=== PATIENT | female | born 1940 | race Caucasian/White ===

== ENCOUNTER 2016-08-19 11:07 | Emergency (ER) | payer MEDICARE, OTHER ==
[~2016-08-19] VITALS: Ht 170.2 cm; Wt 98.0 kg
[~2016-08-19 11:07] MED LIST: VICODIN 5/500 T1 TAB PO
--- NOTE | 2016-08-19 11:26 | Emergency Room Report ---
History of Present Illness Time Seen by [id number] Presenting Problem in Triage Pt arrived:Walked Presenting Problem:Vomiting, prductive cough of green sputum that has turned to white- smells bad and tastes bad. 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 N Clinical Suspician of Infection? N Mental Status: 1 - Regular (Normal Baseline) Sepsis Risk:Low Sepsis Risk Have you (or family members/close friends) recently traveled outside the [place]? N If Yes, where/when: Have you had exposure to infectious disease within the past month? TB? Other? Specify: Comment The patient complains of being ill for 11 days. She has a sore throat and a productive cough. She says today she also developed vomiting. Her blood pressure was also high today. She says that she was in the [facility] in [facility] when all of this started. She says there was a lot of pollen. She says that she goes there every year at this time and gets these symptoms from [facility] and sees her family physician and gets a shot (? steroid) which helps. She was going to try and wait until tomorrow to see her primary care physician but because of the vomiting and high blood pressure she felt she couldn't wait. No fever. She had a RIGHT earache, which is now gone. She has a history of hypertension, but says she was taken off her medications 3 years ago because it made her blood pressure go too low in the evenings. She says she takes an herbal compound which regulates it well, unless she takes cold medications. She has been taking Sudafed cold and sinus and her blood pressure is now elevated. ALLERGIES Coded Allergies: penicillin G (Severe, 08/19/16) Home Medications Reported Medications No Known Home Medications History Medical History General Angina: Yes [place]: Yes Hypertension? No Hyperlipidemia? Yes CHF? No COPD? No Asthma? No Hernia? No CVA? No Seizures? No Diabetes? No UTI? No Stones? No GB Disease: No Hepatitis? No Cataracts? No Glaucoma? No MRSA? No TB? No Cancer? No Immunization Hx DT/Tetanus 5-10 YRS Surgical Hx Previous Surgery?Y Hysterect Family History Family Hx Diabetes No CAD Yes Hypertension No Hyperlipidemia No Cancer No TB No Social History Smoking Hx Smoker: Never Smoker Tobacco: No Packs/day N/A Alcohol Alcohol: No Review of Systems All Other Systems Reviewed and Negative Constitutional denies fever Respiratory cough, shortness of breath Gastrointestinal vomiting Physical Exam Vital Signs Vital Signs Date Time Temp Pulse Resp B/P Pulse O2 O2 Flow FiO2 Ox Delivery Rate 08/19 1246 92 18 156/98 96 08/19 1200 96 18 151/90 95 08/19 1110 99.4 98 18 191/110 95 General Appearance normal appearance, WD/WN Eye Exam - bilateral eye normal exam, bilateral eye PERRL, bilateral eye EOMI Ear, Nose, Throat hearing grossly normal, normal ENT inspection, mild erythema of pharynx without edema or exudates. Uvula midline. Voice is clear., tympanic membranes normal Neck normal inspection, non-tender, supple, full range of motion Respiratory Status Yes: trachea midline, chest symmetrical, non tender chest. No: respiratory distress. Lung Sounds bilateral: normal breath sounds, lungs clear. 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 No Results/Orders Laboratory Tests 08/19/16 1120: TSH 2.27, Thyroxine (T4) 9.0 08/19/16 1120: Lactic Acid 1.2 08/19/16 1120: Sodium 136, Potassium 3.6, Chloride 101, Carbon Dioxide 31, BUN 8, Creatinine 0.9, Estimated Creat Clear 85, Estimated GFR (MDRD) 61, Glucose 109 H, Calcium 9.1, Total Bilirubin 0.4, AST 14 L, ALT 23, Alkaline Phosphatase 103, Creatine Kinase 65, CK-MB (CK-2) Rel Index 0.8, CK and CKMB Interp < 0.5, Troponin I < 0.02, Total Protein 7.9, Albumin 3.8, Globulin 4.1 H, Albumin/Globulin Ratio 0.9 L, WBC 7.0, RBC 4.83, Hgb 14.7, Hct 44.8, MCV 92.8, RDW 12.4, Plt Count 219 , MPV 6.1 L, Gran % 49.3, Gran # 3.5, Lymphocytes % 41.9, Monocytes % 5.8, Eosinophils % 2.5, Basophils % 0.4, Lymphocytes # 3.0, Monocytes # 0.4, Eosinophils # 0.2, Basophils # 0.0, PUBS MCHC 32.8, MCH 30.5 Current Medication Orders Sig/Venkat Start time Last Medication Dose Route Stop Time Status Admin Ondansetron HCl 4 MG ONCE ONE 08/19 1230 DC 08/19 IV 08/19 1231 1231 Ondansetron HCl 0 .STK-MED ONE 08/19 1228 DC .ROUTE Sodium Chloride 10 ML PRN PRN 08/19 1130 AC IV 08/20 1120 Orders Procedure Date/time Status LOW HEEL BUILDER 08/19 1200 Active LOW HEEL BUILDER 08/19 1154 Active THYROID STIMULATING HORMONE 08/19 1154 Complete THYROXINE (T4) 08/19 1154 Complete 12 LEAD EKG-BESSON (INITIAL) 08/19 1120 Active ELECTROCARDIOGRAM REQUEST 08/19 1120 Active CHEST(2 VIEWS-NOT PORTABLE) 08/19 1120 Active IV SALINE LOCK 08/19 1120 Active CULTURE, BLOOD 08/19 1120 Active LACTIC ACID 08/19 1120 Complete CBC WITH AUTO DIFF 08/19 1120 Complete CARDIAC ENZYMES 08/19 1120 Complete CHEM 12 PROFILE 08/19 1120 Complete CM/EKG CM/EKG Comments EKG interpreted by Remi Snyder MD: Rhythm: Atrial fibrillation Rate: 90 [place]: normal Ectopy: none Conduction: normal ST Segment Changes: none T Wave Changes: none Q Waves: none No evidence of acute ischemia or injury Poor R-wave progression No prior electrocardiograms available for comparison XRAY/CT/US XRAY/CT/US XRAY chest Comment X-ray interpreted by Remi Snyder M.D.: Nodule RIGHT base. No prior x-rays available for comparison. Progress - 12:45 PM: Case discussed with Dr. Bates. He requests the patient be started on Zaroxolyn. No steroids at this time due to her blood pressure. Z-Akhil. Discontinue Sudafed. No blood pressure medication until rechecked in the office while off of Sudafed. Departure Departure Disposition DC Home or Self Care(routine) Clinical Impression Primary Impression: Acute bronchitis Qualifiers: Bronchitis organism: unspecified organism Qualified Code: J20.9 - Acute bronchitis, unspecified Secondary Impressions: Hypertension Qualifiers: Hypertension type: essential hypertension Qualified Code: I10 - Essential (primary) hypertension New onset atrial fibrillation Pharyngitis Qualifiers: Pharyngitis/tonsillitis etiology: unspecified etiology Qualified Code: J02.9 - Acute pharyngitis, unspecified Pulmonary nodule Condition STABLE Patient Instructions DI for Acute Bronchitis, DI for Atrial Fibrillation, DI for Pharyngitis/Tonsillopharyngitis -- Child, DI for Pulmonary Nodule Additional Instructions Call Dr. Bates's office tomorrow to make appointment to be seen as soon as possible. Stop taking Sudafed. Only take [id number] cold medications that are approved for with high blood pressure. Prescriptions Current Visit Scripts Rivaroxaban (Xarelto) 20 MG PO DAILY #30 TAB Azithromycin (Zithromycin (Z-AKHIL) 250MG Tab) 250 MG PO DAILY #6 TAB TAKE TWO (2) TABLETS ON DAY 1, THEN ONE (1) TABLET DAY #2 THRU #5 ED Critical Care Critical Care No at [id number]
--- NOTE | 2016-08-19 11:26 | Emergency Room Report ---
History of Present Illness Time Seen by [id number] Presenting Problem in Triage Pt arrived:Walked Presenting Problem:Vomiting, prductive cough of green sputum that has turned to white- smells bad and tastes bad. 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 N Clinical Suspician of Infection? N Mental Status: 1 - Regular (Normal Baseline) Sepsis Risk:Low Sepsis Risk Have you (or family members/close friends) recently traveled outside the [place]? N If Yes, where/when: Have you had exposure to infectious disease within the past month? TB? Other? Specify: Comment The patient complains of being ill for 11 days. She has a sore throat and a productive cough. She says today she also developed vomiting. Her blood pressure was also high today. She says that she was in the [facility] in [facility] when all of this started. She says there was a lot of pollen. She says that she goes there every year at this time and gets these symptoms from [facility] and sees her family physician and gets a shot (? steroid) which helps. She was going to try and wait until tomorrow to see her primary care physician but because of the vomiting and high blood pressure she felt she couldn't wait. No fever. She had a RIGHT earache, which is now gone. She has a history of hypertension, but says she was taken off her medications 3 years ago because it made her blood pressure go too low in the evenings. She says she takes an herbal compound which regulates it well, unless she takes cold medications. She has been taking Sudafed cold and sinus and her blood pressure is now elevated. ALLERGIES Coded Allergies: penicillin G (Severe, 08/19/16) Home Medications Reported Medications No Known Home Medications History Medical History General Angina: Yes [place]: Yes Hypertension? No Hyperlipidemia? Yes CHF? No COPD? No Asthma? No Hernia? No CVA? No Seizures? No Diabetes? No UTI? No Stones? No GB Disease: No Hepatitis? No Cataracts? No Glaucoma? No MRSA? No TB? No Cancer? No Immunization Hx DT/Tetanus 5-10 YRS Surgical Hx Previous Surgery?Y Hysterect Family History Family Hx Diabetes No CAD Yes Hypertension No Hyperlipidemia No Cancer No TB No Social History Smoking Hx Smoker: Never Smoker Tobacco: No Packs/day N/A Alcohol Alcohol: No Review of Systems All Other Systems Reviewed and Negative Constitutional denies fever Respiratory cough, shortness of breath Gastrointestinal vomiting Physical Exam Vital Signs Vital Signs Date Time Temp Pulse Resp B/P Pulse O2 O2 Flow FiO2 Ox Delivery Rate 08/19 1246 92 18 156/98 96 08/19 1200 96 18 151/90 95 08/19 1110 99.4 98 18 191/110 95 General Appearance normal appearance, WD/WN Eye Exam - bilateral eye normal exam, bilateral eye PERRL, bilateral eye EOMI Ear, Nose, Throat hearing grossly normal, normal ENT inspection, mild erythema of pharynx without edema or exudates. Uvula midline. Voice is clear., tympanic membranes normal Neck normal inspection, non-tender, supple, full range of motion Respiratory Status Yes: trachea midline, chest symmetrical, non tender chest. No: respiratory distress. Lung Sounds bilateral: normal breath sounds, lungs clear. 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 No Results/Orders Laboratory Tests 08/19/16 1120: TSH 2.27, Thyroxine (T4) 9.0 08/19/16 1120: Lactic Acid 1.2 08/19/16 1120: Sodium 136, Potassium 3.6, Chloride 101, Carbon Dioxide 31, BUN 8, Creatinine 0.9, Estimated Creat Clear 85, Estimated GFR (MDRD) 61, Glucose 109 H, Calcium 9.1, Total Bilirubin 0.4, AST 14 L, ALT 23, Alkaline Phosphatase 103, Creatine Kinase 65, CK-MB (CK-2) Rel Index 0.8, CK and CKMB Interp < 0.5, Troponin I < 0.02, Total Protein 7.9, Albumin 3.8, Globulin 4.1 H, Albumin/Globulin Ratio 0.9 L, WBC 7.0, RBC 4.83, Hgb 14.7, Hct 44.8, MCV 92.8, RDW 12.4, Plt Count 219 , MPV 6.1 L, Gran % 49.3, Gran # 3.5, Lymphocytes % 41.9, Monocytes % 5.8, Eosinophils % 2.5, Basophils % 0.4, Lymphocytes # 3.0, Monocytes # 0.4, Eosinophils # 0.2, Basophils # 0.0, PUBS MCHC 32.8, MCH 30.5 Current Medication Orders Sig/Venkat Start time Last Medication Dose Route Stop Time Status Admin Ondansetron HCl 4 MG ONCE ONE 08/19 1230 DC 08/19 IV 08/19 1231 1231 Ondansetron HCl 0 .STK-MED ONE 08/19 1228 DC .ROUTE Sodium Chloride 10 ML PRN PRN 08/19 1130 AC IV 08/20 1120 Orders Procedure Date/time Status CHIP PERSON 08/19 1200 Active CHIP PERSON 08/19 1154 Active THYROID STIMULATING HORMONE 08/19 1154 Complete THYROXINE (T4) 08/19 1154 Complete 12 LEAD EKG-BESSON (INITIAL) 08/19 1120 Active ELECTROCARDIOGRAM REQUEST 08/19 1120 Active CHEST(2 VIEWS-NOT PORTABLE) 08/19 1120 Active IV SALINE LOCK 08/19 1120 Active CULTURE, BLOOD 08/19 1120 Active LACTIC ACID 08/19 1120 Complete CBC WITH AUTO DIFF 08/19 1120 Complete CARDIAC ENZYMES 08/19 1120 Complete CHEM 12 PROFILE 08/19 1120 Complete CM/EKG CM/EKG Comments EKG interpreted by Remi Snyder MD: Rhythm: Atrial fibrillation Rate: 90 [place]: normal Ectopy: none Conduction: normal ST Segment Changes: none T Wave Changes: none Q Waves: none No evidence of acute ischemia or injury Poor R-wave progression No prior electrocardiograms available for comparison XRAY/CT/US XRAY/CT/US XRAY chest Comment X-ray interpreted by Remi Snyder M.D.: Nodule RIGHT base. No prior x-rays available for comparison. Progress - 12:45 PM: Case discussed with Dr. Bates. He requests the patient be started on Zaroxolyn. No steroids at this time due to her blood pressure. Z-Akhil. Discontinue Sudafed. No blood pressure medication until rechecked in the office while off of Sudafed. Departure Departure Disposition DC Home or Self Care(routine) Clinical Impression Primary Impression: Acute bronchitis Qualifiers: Bronchitis organism: unspecified organism Qualified Code: J20.9 - Acute bronchitis, unspecified Secondary Impressions: Hypertension Qualifiers: Hypertension type: essential hypertension Qualified Code: I10 - Essential (primary) hypertension New onset atrial fibrillation Pharyngitis Qualifiers: Pharyngitis/tonsillitis etiology: unspecified etiology Qualified Code: J02.9 - Acute pharyngitis, unspecified Pulmonary nodule Condition STABLE Patient Instructions DI for Acute Bronchitis, DI for Atrial Fibrillation, DI for Pharyngitis/Tonsillopharyngitis -- Child, DI for Pulmonary Nodule Additional Instructions Call Dr. Bates's office tomorrow to make appointment to be seen as soon as possible. Stop taking Sudafed. Only take [id number] cold medications that are approved for with high blood pressure. Prescriptions Current Visit Scripts Rivaroxaban (Xarelto) 20 MG PO DAILY #30 TAB Azithromycin (Zithromycin (Z-AKHIL) 250MG Tab) 250 MG PO DAILY #6 TAB TAKE TWO (2) TABLETS ON DAY 1, THEN ONE (1) TABLET DAY #2 THRU #5 ED Critical Care Critical Care No at [id number]
[2016-08-19 11:32] LABS: HEMOGLOBIN 14.7 g/dL (12.2-16.2); LYMPH % 41.9 % (10-50.0)
[2016-08-19 11:54] LABS: BUN 8 mg/dL (7-18); GFR (ESTIMATED) 61 ML/MIN (59-)
--- OUTSIDE RECORDS SUMMARY | 2016-08-19 12:21 | External Medical Summary Rpt ---
Demographics Preferred Language Sinhala Marital Status Unknown Scientology Affiliation Unknown Race Unknown Ethnic Group Unknown Author Author , Organization [employer] Address Unknown Phone Unavailable Purpose Continuity of Care Document - through 2016 Immunization No patient found.
--- OUTSIDE RECORDS SUMMARY | 2016-08-19 12:21 | External Medical Summary Rpt ---
Author Author ALTHEA Fung, ALTHEA Fung Organization [employer] Address Unknown Phone Unavailable
--- OUTSIDE RECORDS SUMMARY | 2016-08-19 12:21 | External Medical Summary Rpt ---
Demographics Preferred Language Sami Marital Status Unknown Caodaism Affiliation Unknown Race Unknown Ethnic Group Unknown Author Author , Organization [employer] Address Unknown Phone Unavailable Purpose Continuity of Care Document - through 2016 Immunization No patient found.
--- OUTSIDE RECORDS SUMMARY | 2016-08-19 12:21 | External Medical Summary Rpt ---
Author Author [employer] Organization [employer] Address Unknown Phone Unavailable Purpose Continuity of Care Document - through 2016
[2016-08-19] MEDS ORDERED: XARELTO20 MG PO (12:59)
[2016-08-19] MEDS ORDERED: ZITHROMAX Z PA250 MG PO (12:59)
[2016-08-19 13:12] VITALS: BP 133/61
--- NOTE | 2016-08-19 15:23 | RADIOLOGY REPORT PS360 ---
CHEST(2 VIEWS-NOT PORTABLE) COMPARISON: None HISTORY: Productive cough TECHNIQUE: PA and lateral chest FINDINGS: There is borderline hyperexpansion lung dale by see no definite pneumonic infiltrate. There is mild cardio megaly with left ventricular prominence but is no evidence of failure. There is a partially calcified granuloma right lower lobe. There is mild dextroscoliotic curvature of the lower thoracic spine. IMPRESSION: Borderline COPD and mild cardio megaly, no acute chest pathology noted
== END 2016-08-19 13:12 | disposition home or self-care (01) ==
LOC: ER 11:07
PROVIDERS: Emergency Medicine
DX: J20.9 Acute bronchitis, unspecified (principal); J02.9 Acute pharyngitis, unspecified; I48.0 Paroxysmal atrial fibrillation; R91.1 Solitary pulmonary nodule; I10 Essential (primary) hypertension
CPT/HCPCS: J2405

== ENCOUNTER → 2016-08-21 | Outpatient (CLI) | payer MEDICARE, OTHER ==
[~2016-08-21] MED LIST changes: +XARELTO20 MG PO; +ZITHROMAX Z PA250 MG PO
== END ==
LOC: RT 11:58
DX: I48.0 Paroxysmal atrial fibrillation (principal)

== ENCOUNTER → 2016-12-31 | Outpatient (CLI) | payer MEDICARE, OTHER | LOC: RT 12:03 | DX: I48.0 Paroxysmal atrial fibrillation (principal) ==